=== PATIENT | male | born 1995 | race Caucasian/White ===

== ENCOUNTER 2017-09-05 13:33 | Emergency (ER) | payer OTHER, SELFPAY ==
[2017-09-05 13:34] VITALS: BP 133/83; PULSE 61; RESP 16; TEMP 36.4; O2SAT 100; BMI 30.1
--- NOTE | 2017-09-05 15:00 | ED.VISSUMM ---
- ER Visit Summary Date of Service: 09/05/17 Chief Complaint: Laceration History of Present Illness: The patient is a 21 M with no primary care physician. He reports that he was at work today and a piece of equipment caught the back of his neck and he suffered a laceration. He denies any pain. His tetanus is up-to-date. Physical Examination: Vitals: Stable. Afebrile. General: Well-nourished and well-developed. Head: Normocephalic atraumatic. Neck: Supple, no lymphadenopathy. No JVD. Nontender. Cardiovascular: Regular rate and rhythm. No murmurs. Respiratory: No respiratory distress. Clear to auscultation bilaterally. Abdominal: Soft, nontender, nondistended, normal bowel sounds. No guarding, rebound, or peritoneal signs. Back: 9 cm laceration to the left trapezius near the midline. This extends to subcutaneous tissue and has moderate active bleeding. Extremities: Nontender, no edema. Skin: Normal color, no rash. Neurologic: Alert and oriented ?3. Cranial nerves II through XII are intact. Normal strength and sensation. Psych: Normal affect. Emergency Department Course and Treatment: The patient had his wound anesthetized and repaired. He tolerated it well. Treatment Plan: Patient will be discharged instructions to keep this clean, dry, and covered. Follow up with alfredo wagner in 2 weeks for suture removal. Return to the emergency department for any worsening symptoms. Disposition: To home in improved and stable condition. Impression: 1. Laceration to back, 9 cm, repaired. Procedure note: Wound was cleansed with chlorhexidine soap. Anesthetized with 1% lidocaine without epinephrine. Copiously irrigated with normal saline. Wound was explored there is no foreign material present. There were 3 vessels that were the main source of bleeding. These were each tied off with 4-0 Vicryl suture. It was closed with 7 simple interrupted 4-0 ethilon sutures. The patient tolerated it well. This note was generated with [employer] dictation software. It may contain incorrect words, spelling, and punctuation that were not noted in review of the chart prior to signing ED Disposition - Plan for ED Patient: Disposition: Home or Assisted Living Chief Complaint: Laceration Instructions: ED Laceration Trunk Referrals: [facility] [GROUP OF PHYSICIANS] - 10-14 Days suture removal
--- NOTE | 2017-09-05 15:03 | ED.DCSUM_ITS ---
- ER Visit Summary Date of Service: 09/05/17 Chief Complaint: Laceration History of Present Illness: The patient is a 21 M with no primary care physician. He reports that he was at work today and a piece of equipment caught the back of his neck and he suffered a laceration. He denies any pain. His tetanus is up-to-date. Physical Examination: Vitals: Stable. Afebrile. General: Well-nourished and well-developed. Head: Normocephalic atraumatic. Neck: Supple, no lymphadenopathy. No JVD. Nontender. Cardiovascular: Regular rate and rhythm. No murmurs. Respiratory: No respiratory distress. Clear to auscultation bilaterally. Abdominal: Soft, nontender, nondistended, normal bowel sounds. No guarding, rebound, or peritoneal signs. Back: 9 cm laceration to the left trapezius near the midline. This extends to subcutaneous tissue and has moderate active bleeding. Extremities: Nontender, no edema. Skin: Normal color, no rash. Neurologic: Alert and oriented ?3. Cranial nerves II through XII are intact. Normal strength and sensation. Psych: Normal affect. Emergency Department Course and Treatment: The patient had his wound anesthetized and repaired. He tolerated it well. Treatment Plan: Patient will be discharged instructions to keep this clean, dry , and covered. Follow up with alfredo wagner in 2 weeks for suture removal. Return to the emergency department for any worsening symptoms. Disposition: To home in improved and stable condition. Impression: 1. Laceration to back, 9 cm, repaired. Procedure note: Wound was cleansed with chlorhexidine soap. Anesthetized with 1% lidocaine without epinephrine. Copiously irrigated with normal saline. Wound was explored there is no foreign material present. There were 3 vessels that were the main source of bleeding. These were each tied off with 4-0 Vicryl suture. It was closed with 7 simple interrupted 4-0 ethilon sutures. The patient tolerated it well. This note was generated with [employer] dictation software. It may contain incorrect words, spelling, and punctuation that were not noted in review of the chart prior to signing ED Disposition - Plan for ED Patient: Disposition: Home or Assisted Living Chief Complaint: Laceration Instructions: ED Laceration Trunk Referrals: [facility] [GROUP OF PHYSICIANS] - 10-14 Days suture removal
[2017-09-05 15:10] VITALS: BP 128/75; PULSE 72; RESP 16; O2SAT 100
== END 2017-09-05 15:34 | disposition home or self-care (01) ==
LOC: ED 14:52
PROVIDERS: Emergency Provider Emergency Medicine
DX: S21.212A Laceration without foreign body of left back wall of thorax without penetration into thoracic cavity, initial encounter (principal); W31.89XA Contact with other specified machinery, initial encounter; Y93.9 Activity, unspecified; Y92.69 Other specified industrial and construction area as the place of occurrence of the external cause; Y99.0 Civilian activity done for income or pay; Z72.0 Tobacco use
CPT/HCPCS: 12004; 99284

== ENCOUNTER 2018-03-21 04:59 | Emergency (ER) | payer OTHER, SELFPAY ==
[2018-03-21 05:01] VITALS: BP 162/99; PULSE 93; RESP 16; TEMP 36.4; O2SAT 97; BMI 33.2
--- NOTE | 2018-03-21 05:05 | RAD_ITS ---
STUDY: X-RAY - RIGHT FOOT CLINICAL: Male, 22 years old. Foot pain TECHNIQUE: 3 view(s) of the foot. COMPARISON: None. FINDINGS: Normal talus, calcaneus, and tarsal bones. Normal visualized subtalar, talonavicular, calcaneocuboid, tarsal and tarsometatarsal articulations. Normal metatarsi. Normal metatarsophalangeal joint of the great toe. Normal tibial and fibular sesamoid bones. Normal interphalangeal joint of the great toe. Normal phalanges of the great toe. Normal second through fifth metatarsophalangeal joints. Normal interphalangeal joints and phalanges of the lesser toes. The soft tissue structures are unremarkable. RAD/Foot min 3 Views IMPRESSION: Normal x-ray examination of the foot. Electronically Signed: Zach Evans, at 5:26 EST Tel , Service support ,
--- NOTE | 2018-03-21 05:33 | ED.VISSUMM ---
- ER Visit Summary Date of Service: 03/21/18 Chief Complaint: Right foot pain History of Present Illness: The patient is a 22 M who has had right foot pain for 2-3 days after working out his legs. No other injury. No swelling. He has no fever chills or any other symptoms. Physical Examination: Otherwise normal exam he has no knee pain no ankle pain. He has tenderness over the dorsum of his foot, he has no tenderness over his plantar fascia. There is no erythema or calor. Normal PT and DP pulses. Normal strength and sensation. Emergency Department Course and Treatment: X-rays negative, no fracture I doubt this is gout there is no inflammatory changes that I see, there may be a small fracture that I do not see on x-ray I told the patient he needs a repeat x-ray in a week. He appears well and has a normal exam will be discharged with analgesia. I will give him a boot orthosis. Discharge stable condition Impression: Right foot pain This note was generated with [employer] dictation software. It may contain incorrect words, spelling, and punctuation that were not noted in review of the chart prior to signing ED Disposition - Plan for ED Patient: Disposition: Home or Assisted Living Chief Complaint: Lower Extremity Injury Instructions: Treating Tendonitis of the Foot Prescriptions: Hydrocodone Bitart/Apap 5-325 [[place] 5MG-325MG] 1 tab PO Q4H PRN PRN 2 Days #10 tab PRN Reason: Pain Referrals: Black Oh DPM [STAFF PHYSICIAN] - 5-7 Days
--- NOTE | 2018-03-21 05:37 | ED.DCSUM_ITS ---
- ER Visit Summary Date of Service: 03/21/18 Chief Complaint: Right foot pain History of Present Illness: The patient is a 22 M who has had right foot pain for 2-3 days after working out his legs. No other injury. No swelling. He has no fever chills or any other symptoms. Physical Examination: Otherwise normal exam he has no knee pain no ankle pain. He has tenderness over the dorsum of his foot, he has no tenderness over his plantar fascia. There is no erythema or calor. Normal PT and DP pulses. Normal strength and sensation. Emergency Department Course and Treatment: X-rays negative, no fracture I doubt this is gout there is no inflammatory changes that I see, there may be a small fracture that I do not see on x-ray I told the patient he needs a repeat x-ray in a week. He appears well and has a normal exam will be discharged with analgesia. I will give him a boot orthosis. Discharge stable condition Impression: Right foot pain This note was generated with [employer] dictation software. It may contain incorrect words, spelling, and punctuation that were not noted in review of the chart prior to signing ED Disposition - Plan for ED Patient: Disposition: Home or Assisted Living Chief Complaint: Lower Extremity Injury Instructions: Treating Tendonitis of the Foot Prescriptions: Hydrocodone Bitart/Apap 5-325 [[place] 5MG-325MG] 1 tab PO Q4H PRN PRN 2 Days #10 tab PRN Reason: Pain Referrals: Black Oh DPM [STAFF PHYSICIAN] - 5-7 Days
[2018-03-21] MEDS: HYDROcodone Bitartrate/Apap 5/325 Tablet PO (05:53)
[2018-03-21 05:57] VITALS: BP 162/99; PULSE 93; RESP 16; O2SAT 97
== END 2018-03-21 05:58 | disposition home or self-care (01) ==
PROVIDERS: Emergency Provider Emergency Medicine
DX: M79.671 Pain in right foot (principal); Z72.0 Tobacco use
CPT/HCPCS: 73630; 99283

== ENCOUNTER 2018-08-08 21:15 | Emergency (ER) | payer OTHER, SELFPAY ==
[2018-08-08 21:15] VITALS: BP 145/74; PULSE 61; RESP 14; TEMP 36.7; O2SAT 97; BMI 34.4
--- NOTE | 2018-08-08 23:08 | ED.DCSUM_ITS ---
- ER Visit Summary Date of Service: 08/08/18 Chief Complaint: Laceration to right hand History of Present Illness: The patient is a 22 M who presents for laceration to the right hand. Patient was washing dishes approximately 4 hours ago and the glass shattered. He sustained a laceration to the right hand. His tetanus was updated within the last year. He is dominantly left-handed. Patient went to [facility] care and was told the cut was too deep and he needed further attention at the emergency department. Patient has no medical history, no bleeding disorders, no allergies and takes no medications. Physical Examination: Is awake and alert in no distress. Hemodynamically stable. Examination of the right hand shows a deep laceration on the dorsum of the hand just proximal to the second MCP joint. Patient has flexion and extension of the index finger intact. Sensation and cap refill intact. No other injuries noted. Test Results: [] Emergency Department Course and Treatment: Patient's laceration required suturing. A bloodless field was created by inflating a blood pressure cuff on the forearm as the laceration began briskly oozing blood once the dressing was removed. A 3 cm x 1.5 cm V-shaped flap over the MCP joint was identified. Local infiltration of anesthesia with 1% lidocaine. Wound was explored and there was no indication of any tendon or ligamentous injury with full range of motion of the index finger. The skin was avulsed but there was no injury or breech of integrity of the underlying fascial layer. The wound was explored and no foreign bodies noted. It was copiously irrigated and cleansed with Shur- Clens. It was repaired with 10 50 simple interrupted sutures and 1 modified horizontal mattress suture at the corner. Patient tolerated the procedure well. The cuff was deflated and patient had good movement and sensation in the hand. Pressure was applied to the wound for 5 minutes to ensure bleeding is stopped. It was covered with antibacterial ointment and bandaged with a AlumaFoam splint placed to keep the index finger immobilized in a extended position to prevent any tension on the wound. Wound care instructions given. Patient was discharged home. His tetanus was updated. Treatment Plan: [] Disposition: [] Impression: Right hand laceration, suture repair This note was generated with [employer] dictation software. It may contain incorrect words, spelling, and punctuation that were not noted in review of the chart prior to signing ED Disposition - Plan for ED Patient: Disposition: Home or Assisted Living Instructions: ED Laceration Hand Referrals: Care Physician,No Primary [Primary Care Provider] - [facility] [Provider Group] Additional Instructions: Please leave the bandaging and splint on for the first 24 hours. Afterwards he may remove it and gently clean the cut with warm water and gentle soap. Cover with antibacterial ointment and reapply the AlumaFoam splint to keep your finger from bending and opening the wound. Have your sutures removed by a healthcare provider in 7 days. You have 11 sutures in your cut. If you have any worsening of your condition or any new concerning symptoms, please return immediately to the emergency department for another evaluation.
[2018-08-09] MEDS: Diphth,Pertuss(Acell),Tet Vac 0.5 ML Vial IM (00:46)
--- NOTE | 2018-08-09 01:06 | ED.RN ---
SUTURING COMPLETED PER DR. FISCHER. PRESSURE APPLIED TO WOUND FOR 5 MIN. MINIMAL BLEEDING NOTED, PRESSURE APPLIED UNTIL BLEEDING WAS STOPPED. PT HAND DRESSED AND FINGER SPLINT PLACED PER VERBAL ORDER. PT GIVEN WRITTEN AND VERBAL DISCHARGE INSTRUCTIONS AND VERBALIZE UNDERSTANDING. PT AMBULATES OUT OF DEPT WITH PARENTS.
[2018-08-09 01:09] VITALS: PULSE 67; RESP 15; O2SAT 97
== END 2018-08-09 01:10 | disposition home or self-care (01) ==
PROVIDERS: Emergency Provider Emergency Medicine
DX: S61.411A Laceration without foreign body of right hand, initial encounter (principal); W25.XXXA Contact with sharp glass, initial encounter; Y93.G1 Activity, food preparation and clean up; Y92.9 Unspecified place or not applicable; Y99.9 Unspecified external cause status
CPT/HCPCS: 12002; 90471; 90715; 99284

== ENCOUNTER → 2018-08-15 11:54 | Outpatient (CLI) | payer OTHER, SELFPAY ==
[2018-08-08 21:15] VITALS: BMI 34.4
[2018-08-15 12:55] LABS: Absolute Lymphocyte Count 1.69 X10^3/ul (0.83-4.51); Absolute Neutrophil Count 7.6 X10^3/uL (2.0-7.7); Basophil# 0.05 X10^3/uL; Basophil% 0.5 % (0-1); Eosinophil# 0.21 X10^3/uL; Eosinophils% 1.9 % (0-5); Hemoglobin 14.7 g/dl (13.0-16.5); Lymphocyte # 1.69 X10^3/ul (4.0); Lymphocyte % 15.2 % (19-41); Mean Corp Hgb Conc 32.7 g/gl (32-36); Mean Corpuscular Hgb 30.4 pg (27.0-32.0); Mean Corpuscular Volume 93.2 fL (80-94); Mean Platelet Vol. 10.5 fl (6.2-12.0); Monocyte# 1.56 X10^3/uL; Neutrophil # 7.55 X10^3/uL (2.7-7.7); Neutrophil % 67.9 % (47-70); Platelet Count 327 K/mm3 (150-450); RBC Distribution Width CV 14.4 % (11.6-14.6); RBC Distribution Width SD 49.2 fl (35.1-43.9); Red Blood Count 4.83 M/mm3 (4.6-6.2); White Blood Count 11.1 K/mm3 (4.4-11.0)
[2018-08-15 13:04] LABS: Differential Indicated SCAN CRITERIA MET; POSITIVE COUNT NO; POSITIVE DIFFERENTIAL YES; POSITIVE MORPHOLOGY NO
[2018-08-15 13:22] LABS: ALB/GLOB Ratio 0.9 RATIO (0.9-2.4); AST(SGOT) 44 U/L (15-37); Alanine Aminotransfer ALT/SGPT 49 U/L (16-61); Albumin, Serum 3.8 g/dL (3.2-5.0); Alkaline Phosphatase 69 U/L (45-117); Anion Gap 6 (5-15); BUN 22 mg/dL (7-18); Calcium,Total 8.6 mg/dL (8.5-10.1); Chloride 102 mmol/L (98-107); Creatinine, Serum 1.05 mg/dL (0.70-1.30); EST Glomerular Filtration Rate 92 mL/min (>60); Est Glom Filt Rate - Afr Amer 111 mL/min (>60); Globulin 4.1 g/dL (2.2-4.2); Glucose 89 mg/dL (74-106); Protein, Total 7.9 g/dL (6.4-8.2); Sodium Level 136 mmol/L (136-145); Thyroid Stim Hormone (TSH) 2.47 uIU/mL (0.358-3.74)
[2018-08-18 09:06] LABS: Testosterone, Free 7.42 ng/dL (5.00-21.00)
[2018-08-18 11:48] LABS: Testosterone, % Free 4.61 % (1.50-4.20); Testosterone, Total 161 ng/dL (264-916)
== END ==
DX: R53.83 Other fatigue (principal)
CPT/HCPCS: 36415; 80053; 84402; 84403; 84443; 85025